=== PATIENT | female | born 1990 | race Caucasian/White ===

== ENCOUNTER 2017-01-27 18:44 | Emergency (ER) | payer OTHER ==
--- NOTE | ~2017-01-27 | CR17 ---
[facility]. [facility] A Service of [facility] & [facility] RADIOLOGY TEXT RESULTS PATIENT: NEYMAR MAURICE LOCATION: SED : 86 UNIT #: [id number] AGE: [address]: CLAUDETTE LIZ PA-C SEX: F ORDER DR: [id number] [address] [address] [id number] MR#: [id number] Acc #: [id number] NAME: NEYMAR MAURICE : 1990 SEX: F STUDY DATE/TIME: 01/27/2017 18:45 UNIT: SED ROOM: STUDY DESCRIPTION: CR Ankle 2 Views Lt Attending Physician: Claudette Liz Pa-C Ordering Physician: Physician Non-Staff Primary Care Physician: Kali Greene M.D. MEDICAL IMAGING REPORT This report is preliminary unless electronic signature is present. EXAM Left ankle 2 views HISTORY Anterior pain. Cordless drill fell on ankle 3 days ago. FINDINGS AP, lateral, and oblique projections of the ankle show satisfactory integrity of the joint mortise with a smooth articular surface. There is no identifiable fracture, dislocation, or radiopaque foreign body. IMPRESSION Normal left ankle. Dictated by... Adia Franco M.D. THIS IS AN ELECTRONICALLY VERIFIED REPORT Adia Franco M.D. at 01/28/2017 10:06 AM [place] TD: 01/28/2017 09:07 JOB #: [id number] MEDICAL IMAGING REPORT Page 1 of 1
[~2017-01-27 18:44] MED LIST: ABILIFY PO; ABILIFY5 MG PO; ACETAMINOPHEN; ACETAMINOPHEN PO; ALBUTEROL17 GM INH; ATARAX PO; ATIVAN0.5 M1 PO; BCP PO; BENTYL20 M1 PO; BENTYL20 MG DOB; BENZACLIN GEL50 GM TOP; CLINDAMYCIN PO; CLONAZEPAM0.5 MG PO; DEXILANT30 MG PO; DICLOFENAC PO; DOXYCYCLINE HY100 M1 PO; DOXYCYCLINE PO; ERY-TAB500 MG PO; ERYC250 MG PO; FLAGYL PO; FLEXERIL PO; FLEXERIL10 M1 PO; FLEXERIL10 MG; FLEXERIL10 MG PO; FLOXIN10 M1 AS; GABAPENTIN PO; GUAIFENESIN400 MG PO; HEART BURN MED PO; IBUPROFEN; IBUPROFEN PO; IBUPROFEN200 M1; IBUPROFEN800 MG PO; IUD; KEFLEX PO; KEFLEX500 M1 PO; KETOPROFEN PO; KLONOPIN PO; LATUDA20 MG PO; LEXAPRO PO; LEXAPRO20 MG PO; LITHIUM PO; LORTAB 10/500 T1 TAB PO; LORTAB 5/500 TA1 TA2 PO; MEDROL4 MG/DOSE- PO; METFORMIN PO; MIDOL CAPLET1 EACH; MOTRIN600 MG PO; NAPROSYN-EC500 M1 PO; NAPROSYN500 MG PO; NO MEDICATIONS; PERCOCET PO; PHENERGAN DM1 ML PO; PHENERGAN25 M1 DOB; PREDNISONE PO; PRENATAL VITAMI1 TA3 PO; SEROQUEL PO; SEROQUEL50 MG PO; STERAPRED5 MG/DOSE1 PO; SUDAFED30 M1 PO; TYLENOL #3 PO; TYLOX 5/500 CAP1 CAP PO; ULTRAM; ULTRAM PO; VIBRAMYCIN100 M1 PO; VICODIN 5/1 TAB 5/50 PO; VOLTAREN25 MG PO; VOLTAREN50 MG PO; VOLTAREN75 MG PO; ZITHROMAX PO; ZYRTEC10 M2 PO
== END 2017-01-27 19:29 | disposition home or self-care (01) ==
LOC: SED 18:44
DX: S90.02XA Contusion of left ankle, initial encounter (principal); F17.200 Nicotine dependence, unspecified, uncomplicated; Z98.51 Tubal ligation status; W20.8XXA Other cause of strike by thrown, projected or falling object, initial encounter; Y92.009 Unspecified place in unspecified non-institutional (private) residence as the place of occurrence of the external cause
CPT/HCPCS: 29540; 73600; 99283

== ENCOUNTER 2017-04-08 22:24 | Emergency (ER) | payer OTHER ==
--- NOTE | ~2017-04-08 | CR63 ---
[facility]. [facility] A Service of [facility] & [facility] RADIOLOGY TEXT RESULTS PATIENT: NEYMAR MAURICE LOCATION: SED : [birth year] UNIT #: [id number] AGE: [address]: CARINE JACKSON SEX: F ORDER DR: [id number] [place] [id number] MR#: [id number] Acc #: [id number] NAME: NEYMAR MAURICE : 1990 SEX: F STUDY DATE/TIME: 04/08/2017 23:29 UNIT: SED ROOM: STUDY DESCRIPTION: CR Chest 2 View Attending Physician: Carine Jackson Aprn Ordering Physician: Carine Jackson Aprn Primary Care Physician: Kali Greene M.D. MEDICAL IMAGING REPORT This report is preliminary unless electronic signature is present. EXAM Chest x-ray, 04/08/17 HISTORY 26-year-old female in the ED complaining of 3-day history of cough, congestion and wheezing. TECHNIQUE PA and lateral upright chest series. FINDINGS The exam shows no active disease in the chest. Low lung volumes. No definite acute pulmonary infiltrate or pleural effusion. Heart size and pulmonary vascularity are normal. No change since 03/20/2016. IMPRESSION No active disease. No change since 03/20/2016. Dictated by... Brad Haro M.D. THIS IS AN ELECTRONICALLY VERIFIED REPORT Brad Haro M.D. at 04/09/2017 6:02 AM KARLA/zonia TD: 04/09/2017 03:58 JOB #: [id number] MEDICAL IMAGING REPORT Page 1 of 1
[2017-04-08] MEDS ORDERED: EFFEXOR75 M2 (22:38)
== END 2017-04-09 00:45 | disposition home or self-care (01) ==
LOC: SED 22:24
DX: J06.9 Acute upper respiratory infection, unspecified (principal); E11.9 Type 2 diabetes mellitus without complications; F32.9 Major depressive disorder, single episode, unspecified; F41.9 Anxiety disorder, unspecified; Z98.51 Tubal ligation status; F17.210 Nicotine dependence, cigarettes, uncomplicated; Z79.899 Other long term (current) drug therapy
CPT/HCPCS: 71020; 94640; 99284